=== PATIENT | male | born 1940 | race Caucasian/White ===

== ENCOUNTER → 2017-05-23 | Outpatient (CLI) | payer MEDICARE | END | disposition home or self-care (01) | LOC: RAH 14:55 | PROVIDERS: ATTEND Internal Medicine | DX: J44.9 Chronic obstructive pulmonary disease, unspecified (principal); J98.11 Atelectasis; M47.895 Other spondylosis, thoracolumbar region | CPT/HCPCS: 71046 ==

== ENCOUNTER → 2017-06-08 | Outpatient (CLI) | payer MEDICARE | END | disposition home or self-care (01) | LOC: SHCH 14:07 | PROVIDERS: ATTEND Internal Medicine Cardiovascular Disease | DX: I10 Essential (primary) hypertension (principal); R00.1 Bradycardia, unspecified; R94.31 Abnormal electrocardiogram [ECG] [EKG] | CPT/HCPCS: 93306 ==

== ENCOUNTER → 2017-07-12 | Outpatient (CLI) | payer MEDICARE ==
[~2017-07-12] MED LIST: REGADENOSON 0.4 MG/5 ML PF SYG IVP SCH
== END | disposition home or self-care (01) ==
LOC: SHCH 08:20
PROVIDERS: ATTEND Internal Medicine Cardiovascular Disease
DX: E11.9 Type 2 diabetes mellitus without complications (principal); E78.5 Hyperlipidemia, unspecified; I10 Essential (primary) hypertension; J44.9 Chronic obstructive pulmonary disease, unspecified; R94.31 Abnormal electrocardiogram [ECG] [EKG]; R00.1 Bradycardia, unspecified; R06.02 Shortness of breath
CPT/HCPCS: 78452; 93017; 96374; A9500 ×2; J2785

== ENCOUNTER 2018-07-28 05:42 | Day surgery (SDC) | payer MEDICARE ==
[2018-07-27 11:59] LABS: BASOPHILS % (AUTO) 0.8 % (0.0-5.0); EOSINOPHILS % (AUTO) 1.9 % (0.0-8.0); HEMATOCRIT 44.4 % (42-54); LYMPHOCYTES % (AUTO) 15.2 % (21.0-51.0); MEAN CORPUSCULAR HEMOGLOBIN 31.9 pg (27.0-33.0); MEAN CORPUSCULAR HGB CONC 32.8 g/dL (32.0-36.0); MEAN CORPUSCULAR VOLUME 97.2 fL (79-99); MONOCYTES % (AUTO) 6.2 % (3.0-13.0); NEUTROPHILS % (AUTO) 75.9 % (40.0-77.0); PLATELET COUNT (AUTO) 138 K/uL (130-400); RED BLOOD CELL COUNT(AUTO) 4.57 MIL/uL (4.50-6.20); RED CELL DISTRIBUTION WIDTH 14.6 % (11.0-15.5)
[2018-07-27 12:13] LABS: CREATININE 1.3 mg/dL (0.5-1.5); INR 1.02 (0.85-1.15); PARTIAL THROMBOPLASTIN TIME 29.2 SEC (26.3-35.5); POTASSIUM 4.2 mmol/L (3.5-5.1); PROTHROMBIN TIME 10.7 SEC (9.6-11.6)
[2018-07-27 12:18] VITALS: BP 160/92
[2018-07-27 12:21] LABS: APPEARANCE,URINE Clear (CLEAR); BILIRUBIN,URINE Negative (NEGATIVE); COLOR,URINE Yellow (YELLOW); GLUCOSE, URINE (UA) Negative (NEGATIVE); KETONES,URINE Negative (NEGATIVE); LEUKOCYTE ESTERASE ,URINE Negative (NEGATIVE); NITRATE,URINE Negative (NEGATIVE); OCCULT BLOOD,URINE Negative (NEGATIVE); PH,URINE 6.5 (5.0-8.0); PROTEIN,URINE Trace mg/dL (NEGATIVE)
[2018-07-27 13:03] LABS: BACTERIA,URINE Rare /HPF (None Seen); RBC,URINE 0-1 /HPF (0-1); SQUAMOUS EPITHELIAL CELL,UR Rare /HPF (0-2); WBC,URINE 0-1 /HPF (0-1)
--- NOTE | 2018-07-27 13:40 | NUR ---
LABS LABS FAXED TO DR. YATES'S OFFICE PER [facility] , SO MD CAN REVIEW AND WILL CALL US BACK IF ANY FURTHER ORDERS. REPORTED ELEVATED BUN/CREA.
--- NOTE | 2018-07-27 16:37 | NUR ---
ABNORMAL LABS [facility] FROM OFFICE CALLED BACK REGARDING ABNORMAL LABS. PER TRACI GONZALEZ FOR DR. YATES, NO NEW ORDERS
[~2018-07-28] VITALS: Ht 167.6 cm; Wt 95.3 kg
[2018-07-28] VITALS (14 sets, daily range): BP systolic 116–179; BP diastolic 60–95
[~2018-07-28 05:42] MED LIST changes: +ALBU6.7H IH; +ASPI-555 PO; +FISH OIL PO; +GLIP5TAB11 PO; +LOSA100T58 PO; +MULT-1289 PO; +PRAV80TA21 PO; -REGADENOSON 0.4 MG/5 ML PF SYG IVP SCH; +TIOT18CA3 IH
[2018-07-28] MEDS ORDERED: SODIUM CHLORIDE 0.9% 1000ML 1,000 ML IV ONE (08:49)
[2018-07-28] MEDS ORDERED: IOHEXOL 350 MG/ML 100ML INFUS..BTL IV ONE (08:56)
[2018-07-28] MEDS ORDERED: NITROGLYCERIN 5 MG/ML 10 ML VIAL IV ONE (08:56)
[2018-07-28] MEDS ORDERED: IOHEXOL-350 50ML VIAL IV ONE (08:56)
[2018-07-28] MEDS ORDERED: LIDOCAINE HCL 2% 20ML ONE ×2 (08:57→10:05)
[2018-07-28] MEDS ORDERED: VERAPAMIL HCL 2.5 MG/ML VIAL ONE (10:05)
[2018-07-28] MEDS ORDERED: HEPARIN SODIUM 1000UNIT/ML 10ML VIAL ONE ×2 (10:06)
[2018-07-28] MEDS ORDERED: BIVALIRUDIN 250 MG/VIAL IV ONE (10:27)
[2018-07-28] MEDS ORDERED: SODIUM CHLORIDE 0.9% 1000ML 1,000 ML IV SCH (10:54)
[2018-07-28] MEDS ORDERED: GLUCAGON 1MG KIT 1 MG ML IM PRN (11:00)
[2018-07-28] MEDS ORDERED: DEXTROSE 50%-WATER 50 ML DISP.SYRIN IV PRN (11:00)
[2018-07-28] MEDS ORDERED: IPRATROPIUM 0.5 MG/2.5 ML INH IH SCH (12:00)
[2018-07-28] MEDS ORDERED: IPRATROPIUM/ALBUTEROL SULFATE 3 ML SOLUTION IH ONE (13:21)
--- NOTE | 2018-07-28 15:05 | NUR ---
RECEIVE PT RECEIVED SEMI SITTING POSITION ON BED. AWAKE ALERT ORIENTED X3. O2 AT 4 LITERS VIA NC. PT NOT IN ANY APPARENT DISTRESS. RIGHT GROIN SOFT, NO OOZING NO HEMATOMA NOTED. RIGHT RADIAL BAND ON, SITE NO BLEEDING NO HEMATOMA NOTED. PT INSTRUCTED TO MINIMIZE MOVEMENT TO RIGHT WRIST. VERBALIZED UNDERSTANDING.
--- NOTE | 2018-07-28 15:05 | NUR ---
REPORT REPORT GIVEN TO PAULINA MARQUEZ AT [id number]
--- NOTE | 2018-07-28 15:30 | NUR ---
DIET PT TOLERATED DIET WELL, PT ASSISTED IN FEEDING PT.
--- NOTE | 2018-07-28 15:40 | NUR ---
NOTE PER DR FAUSTINO BURNS NURSE, DR. HARMON WILL SEE PT IN HIS OFFICE OUTPATIENT. PT DOES NOT HAVE TO COMPLETE THE PREOP TESTS THAT SHE ORDERED IF HE GETS DISCHARGED, WILL CONTINUE PRE OP TEST DURING PREOP APPT.
--- NOTE | 2018-07-28 17:35 | NUR ---
DISCHARGE ORDER CALLED DR. YATES, MADE HIM AWARE THAT DR. HARMON IS GOING TO SEE HIM OUTPATIENT. PER DR. YATES, MAY DISCHARGE PT HOME. FOLLOW UP WITH HIM IN 2 WEEKS. INSTRUCTED PT'S TO CALL [facility] ON TUESDAY FOR A FF UP WITH DR. YATES IN 2 WEEKS SINCE OFFICE ALREADY CLOSED AT THIS TIME. VERBALIZED UNDERSTANDING.
--- NOTE | 2018-07-28 17:45 | NUR ---
DISCHARGE PT DISCHARGED VIA WHEELCHAIR WITH . PT STABLE. NO COMPLAINTS MADE. VOIDED IN BATHROOM PRIOR TO DISCHARGE, AMBULATED WITHOUT ANY PROBLEMS. DISCHARGE INSTRUCTIONS GIVEN TO PT AND , REITERATED THAT PT CANNOT LIFT ANYTHING TO RIGHT ARM, NO HEAVY LIFTING 5 LBS OR MORE FOR 5 DAYS. VERBALIZED UNDERSTANDING. RT WRIST, RT GROIN REMAINED SOFT, NO OOZING NO HEMATOMA NOTED TO BOTH CATH SITES.
[2018-07-28] MEDS ORDERED: ATORVASTATIN CALCIUM 20 MG TABLET PO SCH (21:00)
[2018-07-29] MEDS ORDERED: GLIPIZIDE XL 5MG TAB PO SCH (09:00)
[2018-07-29] MEDS ORDERED: FISH OIL 1000 MG/CAP PO SCH (09:00)
[2018-07-29] MEDS ORDERED: MULTIVITAMIN WITH MINERALS TABLET PO SCH (09:00)
[2018-07-29] MEDS ORDERED: ASPIRIN 81MG TAB.CHEW PO SCH (09:00)
[2018-07-29] MEDS ORDERED: LOSARTAN 100 MG TABLET PO SCH (09:00)
== END 2018-07-28 17:45 | disposition home or self-care (01) ==
LOC: DAH 05:42
PROVIDERS: ATTEND Internal Medicine Cardiovascular Disease
DX: I25.118 Atherosclerotic heart disease of native coronary artery with other forms of angina pectoris (principal); Z68.33 Body mass index [BMI] 33.0-33.9, adult; J44.9 Chronic obstructive pulmonary disease, unspecified; I10 Essential (primary) hypertension; E78.5 Hyperlipidemia, unspecified; E11.9 Type 2 diabetes mellitus without complications; Z79.899 Other long term (current) drug therapy; Z79.84 Long term (current) use of oral hypoglycemic drugs; Z98.890 Other specified postprocedural states; Z79.01 Long term (current) use of anticoagulants
CPT/HCPCS: 36415; 71045; 80048; 81001; 82948 ×2; 85025; 85610; 85730; 93005; 93306; 93454; 94010; 94640; 94664; C1760 ×2; C1769 ×2; C1894 ×2; J1644 ×4; J3490 ×4; J7030; Q9965 ×2; Q9967 ×2; 93455; J0583

== ENCOUNTER → 2019-04-24 | Outpatient (CLI) | payer MEDICARE ==
[~2019-04-24] MED LIST changes: -ALBU6.7H IH; +ALBU6.7H9 IH
== END | disposition home or self-care (01) ==
LOC: RAH 10:58
PROVIDERS: ATTEND Physical Medicine & Rehabilitation
DX: M75.101 Unspecified rotator cuff tear or rupture of right shoulder, not specified as traumatic (principal)
CPT/HCPCS: 73030